=== PATIENT | female | born 1950 | race Caucasian/White ===

== ENCOUNTER → 2017-10-15 10:47 | Outpatient (CLI) | payer MEDICARE, OTHER, SELFPAY ==
--- NOTE | 2017-10-15 | DI.RAD.S_ITS ---
PROCEDURE: XR HIP W PEL IF DONE LT MIN 4V INDICATIONS: RIGHT HIP IMPINGEMENT TECHNIQUE: AP pelvis with lateral view(s) of the bilateral hip(s). COMPARISON: None. FINDINGS: Bones: No fractures or dislocations. Pelvic ring appears intact. There is a small exostosis involving the lateral aspect of the inferior ramus of the right ischium. Mild hip joint space narrowing bilaterally. Small marginal bone spurs are right hip. No suspicious bony lesions. Soft tissues: The visualized bowel gas pattern is normal. No suspicious soft tissue calcifications. IMPRESSION: 1. 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 2. Exostosis right ischium Dictated by: Slade Warner M.D. on 10/15/2017 at 11:28 Approved by: Slade Warner M.D. on 10/15/2017 at 11:30
== END ==
PROVIDERS: Visit Provider Physical Medicine & Rehabilitation
DX: M25.551 Pain in right hip (principal); M25.851 Other specified joint disorders, right hip; M16.0 Bilateral primary osteoarthritis of hip; M77.8 Other enthesopathies, not elsewhere classified
CPT/HCPCS: 73522